=== PATIENT | male | born 1980 | race African-American/Black ===

== ENCOUNTER 2016-12-10 21:03 | Emergency (ER) | payer SELFPAY ==
[~2016-12-10] VITALS: Ht 193 cm; Wt 142.9 kg
[~2016-12-10 21:03] MED LIST: APAP325 M1 PO; NO MEDICATIONS; PHENERGAN DM1 ML PO; PHENERGAN25 MG PO; TAMIFLU75 M1 PO
[2016-12-11] MEDS ORDERED: LISINOPRIL20 MG (10:55)
== END 2016-12-10 21:30 | disposition left against medical advice (07) ==
LOC: CED 21:03 → CFTX 21:03 → CED 21:30
DX: Z53.21 Procedure and treatment not carried out due to patient leaving prior to being seen by health care provider (principal)

== ENCOUNTER 2016-12-11 10:53 | Emergency (ER) | payer SELFPAY ==
[~2016-12-11] VITALS: Ht 190.5 cm; Wt 142.9 kg
[2016-12-11] MEDS ORDERED: LISINOPRIL20 MG (10:55)
== END 2016-12-11 11:36 | disposition home or self-care (01) ==
LOC: SED 10:53
DX: H66.002 Acute suppurative otitis media without spontaneous rupture of ear drum, left ear (principal); I10 Essential (primary) hypertension; F17.210 Nicotine dependence, cigarettes, uncomplicated; Z79.899 Other long term (current) drug therapy
CPT/HCPCS: 99282

== ENCOUNTER 2016-12-29 00:28 | Emergency (ER) | payer MEDICAID ==
--- NOTE | ~2016-12-29 | EKG ---
PATIENT: SARTHAK HERMOSILLO UNIT #: [id number] Ventricular Rate: 78 BPM Atrial Rate: 78 BPM P-R Interval: 176 ms QRS Duration: 98 ms Q-T Interval: 386 ms QTC Calculation(Bezet): 440 ms P [place]: 51 degrees Calculated R [place]: 6 degrees Calculated T [place]: 27 degrees Diagnosis Line: Normal sinus rhythm Diagnosis Line: Possible Left atrial enlargement Diagnosis Line: Borderline ECG Diagnosis Line: No previous ECGs available Diagnosis Line: Confirmed by DEIRDRE MELO MD ([id number]) on 12/31/2016 Diagnosis Line: 10:45:54 PM INTERPRETING MD: LORIE PEREZ
[~2016-12-29 00:28] MED LIST changes: +LISINOPRIL20 MG
[2016-12-29 01:50] LABS: POC - CKMB 1.6 ng/mL (0.0-7.9); POC - TROPONIN <0.05 ng/mL (<=0.05)
[2016-12-29 02:14] LABS: URINE SOURCE CLEAN CATCH
[2016-12-29 02:16] LABS: BASOPHIL# 0.1 X10e3 (0-0.3); BASOPHIL% 0.7 % (0-2.5); EOSINOPHIL# 0.2 X10e3 (0-0.7); EOSINOPHIL% 1.6 % (0.0-7.0); HEMATOCRIT 42.6 % (38.0-50.0); HEMOGLOBIN 14.6 gm/dL (13.0-16.0); LYMPHOCYTE% 17.1 % (17.0-45.0); MEAN CORPUSCULAR HEMOGLOBIN 30.8 PG (28-34); MEAN CORPUSCULAR HGB CONC 34.2 g/dL (30-36); MEAN PLATELET VOLUME 7.7 FL (6.5-11.5); MONOCYTE# 0.8 X10e3 (0-1.0); MONOCYTE% 6.6 % (3.0-12.0); NEUTROPHIL# 8.5 X10e3 (1.5-7.1); PLATELET COUNT 221 X10e3 (140-420); RED BLOOD COUNT 4.73 X10e (3.90-5.60); RED CELL DISTRIBUTION WIDTH 14.2 % (11.0-15.5); WHITE BLOOD COUNT 11.5 X10e3 (4.0-10.5)
[2016-12-29 02:17] LABS: URINE APPEARANCE CLEAR; URINE BILIRUBIN NEG (NEG); URINE BLOOD TRACE (NEG); URINE COLOR DK YELLOW; URINE GLUCOSE NEG (NEG); URINE KETONE 3+ (NEG); URINE LEUKOCYTE ESTERASE NEG (NEG); URINE NITRATE NEG (NEG); URINE PH 5.5 (5-8); URINE PROTEIN 1+ (NEG); URINE SPECIFIC GRAVITY 1.031 (1.003-1.035)
[2016-12-29 02:20] LABS: URINE BACTERIA AUWI NEG (NEGATIVE); URINE SQUAMOUS EPITHELIAL CELL NONE SEEN /[HPF]; UWBCS1 AUWI 0-2 (0-5)
[2016-12-29 02:20] LABS: DIFF IND NO
[2016-12-29 02:21] LABS: CULTURE INDICATED? NO
[2016-12-29 02:38] LABS: ALBUMIN SERUM 4.6 g/dL (3.5-5.0); BILIRUBIN, DIRECT 0.2 mg/dL (0.0-0.2); BILIRUBIN,INDIRECT 1.5 mg/dL (0.0-0.9); BILIRUBIN,TOTAL 1.7 mg/dL (0.2-2.0); CALCIUM SERUM 9.5 mg/dL (8.4-10.2); CREATININE SERUM 1.3 mg/dL (0.6-1.4); GLOM FILT RATE Estimated 80.3 mL/min (>60); POTASSIUM 3.6 mmol/L (3.5-5.1); PROTEIN TOTAL SERUM 8.5 g/dL (6.0-8.3)
== END 2016-12-29 03:40 | disposition home or self-care (01) ==
LOC: CED 00:28
PROVIDERS: Emergency Medicine
DX: R10.84 Generalized abdominal pain (principal); R11.2 Nausea with vomiting, unspecified; I10 Essential (primary) hypertension; Z79.899 Other long term (current) drug therapy
CPT/HCPCS: 36415; 80048; 80076; 81003; 82553; 83690; 84484; 85025; 93005; 96361; 96374; 96375; 99284; J2405

== ENCOUNTER 2017-01-25 21:15 | Emergency (ER) | payer OTHER ==
[~2017-01-25] VITALS: Ht 190.5 cm; Wt 124.7 kg
[2017-01-25 22:01] LABS: BASOPHIL# 0.1 X10e3 (0-0.3); BASOPHIL% 0.6 % (0-2.5); EOSINOPHIL# 0.3 X10e3 (0-0.7); EOSINOPHIL% 2.2 % (0.0-7.0); HEMOGLOBIN 15.9 gm/dL (13.0-16.0); LYMPHOCYTE# 2.4 X10e3 (1.0-3.5); LYMPHOCYTE% 17.4 % (17.0-45.0); MEAN CELL VOLUME 90.1 FL (83-96); MEAN CORPUSCULAR HEMOGLOBIN 30.5 PG (28-34); MEAN CORPUSCULAR HGB CONC 33.9 g/dL (30-36); MEAN PLATELET VOLUME 7.3 FL (6.5-11.5); MONOCYTE# 0.8 X10e3 (0-1.0); MONOCYTE% 5.5 % (3.0-12.0); NEUTROPHIL# 10.3 X10e3 (1.5-7.1); NEUTROPHIL% 74.3 % (40-75); PLATELET COUNT 252 X10e3 (140-420); RED BLOOD COUNT 5.21 X10e (3.90-5.60); RED CELL DISTRIBUTION WIDTH 14.2 % (11.0-15.5); WHITE BLOOD COUNT 13.8 X10e3 (4.0-10.5)
[2017-01-25 22:02] LABS: DIFF IND NO
[2017-01-25 22:23] LABS: ALBUMIN SERUM 4.4 g/dL (3.5-5.0); BILIRUBIN, DIRECT 0.2 mg/dL (0.0-0.2); BILIRUBIN,TOTAL 1.2 mg/dL (0.2-2.0); BUN/CREATININE RATIO 6.92; CALCIUM SERUM 9.4 mg/dL (8.4-10.2); CREATININE SERUM 1.3 mg/dL (0.6-1.4); GLOM FILT RATE Estimated 80.3 mL/min (>60); PHOSPHOROUS 2.9 mg/dL (2.5-4.6); POTASSIUM 3.4 mmol/L (3.5-5.1); PROTEIN TOTAL SERUM 8.3 g/dL (6.0-8.3)
[2017-01-25 22:26] LABS: URINE SOURCE CLEAN CATCH
[2017-01-25 22:30] LABS: URINE APPEARANCE CLEAR; URINE BILIRUBIN NEG (NEG); URINE BLOOD NEG (NEG); URINE COLOR DK YELLOW; URINE GLUCOSE NEG (NEG); URINE KETONE 2+ (NEG); URINE LEUKOCYTE ESTERASE TRACE (NEG); URINE NITRATE NEG (NEG); URINE PH 6.5 (5-8); URINE PROTEIN TRACE (NEG); URINE SPECIFIC GRAVITY 1.028 (1.003-1.035)
[2017-01-25 22:33] LABS: URINE BACTERIA AUWI NEG (NEGATIVE); URINE SQUAMOUS EPITHELIAL CELL NONE SEEN /[HPF]
== END 2017-01-25 23:37 | disposition home or self-care (01) ==
LOC: CED 21:15
PROVIDERS: Emergency Medicine
DX: E87.6 Hypokalemia (principal); F12.929 Cannabis use, unspecified with intoxication, unspecified
CPT/HCPCS: 36415; 80048; 80076; 81003; 83690; 83735; 84100; 85025; 96361; 96374; 99285; J2550

== ENCOUNTER 2017-02-04 13:30 | Emergency (ER) | payer OTHER ==
[~2017-02-04] VITALS: Ht 190.5 cm; Wt 122.5 kg
[2017-02-04 14:13] LABS: URINE SOURCE CLEAN CATCH
[2017-02-04 14:36] LABS: URINE APPEARANCE CLOUDY; URINE BILIRUBIN NEG (NEG); URINE BLOOD 2+ (NEG); URINE COLOR YELLOW; URINE GLUCOSE NEG (NEG); URINE KETONE TRACE (NEG); URINE LEUKOCYTE ESTERASE 3+ (NEG); URINE NITRATE NEG (NEG); URINE PH 6.5 (5-8); URINE PROTEIN 1+ (NEG); URINE SPECIFIC GRAVITY 1.026 (1.003-1.035)
[2017-02-04 14:41] LABS: CULTURE INDICATED? YES; URBCS1 AUWI 25-50 /[HPF] (0-2); URINE BACTERIA AUWI NEG (NEGATIVE); URINE SQUAMOUS EPITHELIAL CELL NONE SEEN /[HPF]; UWBCS1 AUWI INNUM (0-5)
[2017-02-07 08:24] LABS: CHLAMYDIA TRACH Not Detected (Not Detected); N GONOR Detected (Not Detected)
== END 2017-02-04 15:14 | disposition home or self-care (01) ==
LOC: CED 13:30 → CFTX 13:30 → CED 14:31 → CFTX 14:31
PROVIDERS: Physician Assistant
DX: J06.9 Acute upper respiratory infection, unspecified (principal); N34.2 Other urethritis; L73.9 Follicular disorder, unspecified; E11.9 Type 2 diabetes mellitus without complications; I10 Essential (primary) hypertension; F17.200 Nicotine dependence, unspecified, uncomplicated
CPT/HCPCS: 81003; 87086; 87491; 87591; 87651; 96372; 99284; J0696